=== PATIENT | female | born 2000 | race Two or more races ===

== ENCOUNTER 2024-09-07 16:44 | Emergency (ER) | payer OTHER ==
[~2024-09-07] VITALS: Ht 162.6 cm; Wt 95.3 kg
[2024-09-07 17:08] VITALS: BP 130/80; O2SAT 100
[2024-09-07] MEDS ORDERED: DICLOFENAC SODI75 MG PO (17:22)
[2024-09-07] MEDS ORDERED: ZITHROMAX500 MG PO (17:22)
[2024-09-07] MEDS ORDERED: KETOROLAC TROMETHAMINE 60 MG VIAL IM ONE (17:30)
[2024-09-07] MEDS ORDERED: AZITHROMYCIN 500 MG TABLET PO ONE (17:30)
== END 2024-09-07 18:22 | disposition home or self-care (01) ==
LOC: ER 16:56
DX: H66.90 Otitis media, unspecified, unspecified ear (principal); Z88.0 Allergy status to penicillin
CPT/HCPCS: 96372; 99282; J1885